=== PATIENT | male | born 1975 | race African-American/Black ===

== ENCOUNTER 2017-05-27 15:16 | Emergency (ER) | payer OTHER ==
--- NOTE | 2017-05-27 15:39 | PDOC ---
Rapid Medical Evaluation Chief Complaint: Injury Time Seen by Provider: 05/27/17 15:36 Medical Evaluation: Allergies Allergy/AdvReac Type Severity Reaction Status Date / Time No Known Allergies Allergy Verified 05/27/17 15:34 05/27/17 15:36 The patient presents with a chief complaint of: post head injury sustained from metal chair and broken window I have performed a brief in-person evaluation of this patient. mild headache and nausea Pertinent physical exam findings: no LOC, no neurofocal deficit, I have ordered the following:head ct The patient will proceed to the ED for further evaluation. Discharge Disposition - Diagnosis Closed head injury Qualifiers: Encounter type: initial encounter Qualified Code(s): S09.90XA - Unspecified injury of head, initial encounter - Referrals - Patient Instructions - Post Discharge Activity
[2017-05-27 15:52] VITALS: BP 141/86; PULSE 88; TEMP 98.4; BMI 26.6
[2017-05-27] MEDS ORDERED: ACETAMINOPHEN 325 MG TABLET (FP) PO ONE (16:59)
[2017-05-27] MEDS ORDERED: ACETAMINOPHEN 325 MG TABLET (FP) ONE (17:01)
--- NOTE | 2017-05-27 17:08 | PDOC ---
History of Present Illness - General Chief Complaint: Injury Stated Complaint: INJURY (WORK RELATED) Time Seen by Provider: 05/27/17 15:36 History Source: Patient Exam Limitations: No Limitations - History of Present Illness Initial Comments: 05/27/17 17:02 42 yr male works at [employer] states he was hit in the back of the head with a chair that went threw a glass door . no LOC. pt had shards of glass in his clothing, skin is intact. Accident occurred at 1pm today. Pt has not had anything to eat since early this AM, c/o headache. Timing/Duration: reports: 4-6 hours Severity: Yes: mild Past History - Past Medical History Allergies/Adverse Reactions: Allergies Allergy/AdvReac Type Severity Reaction Status Date / Time No Known Allergies Allergy Verified 05/27/17 15:34 Home Medications: Ambulatory Orders No Home Medications 0 dose .ROUTE UTDICT 08/18/12 COPD: No DVT: No Dementia: No - Immunization History Immunization Up to Date: Yes - Suicide/Smoking/Psychosocial Hx Smoking Status: Yes Smoking History: Former smoker Have you smoked in the past 12 months: No Number of Cigarettes Smoked Daily: 6 If you are a former smoker, when did you quit?: 10 Information on smoking cessation initiated: No 'Breaking Loose' booklet given: 03/22/15 Hx Alcohol Use: No Drug/Substance Use Hx: No Substance Use Type: None Neuro Specific PMHX - Complaint Specific PMHX Glaucoma: No Herniated Disk: No Laminectomy: No Migraine: No Multiple Sclerosis: No Neuropathy: No TIA: No Review of Systems - Review of Systems Able to Perform ROS?: Yes Is the patient limited Thai proficient: No Constitutional: No: Symptoms Reported HEENTM: No: Symptoms Reported Respiratory: No: Symptoms reported Cardiac (ROS): No: Symptoms Reported ABD/GI: No: Symptoms Reported : No: Symptoms Reported Musculoskeletal: No: Symptoms Reported Integumentary: No: Symptoms Reported Neurological: Yes: Symptoms reported *Physical Exam - Vital Signs Last Vital Signs Temp Pulse Resp BP Pulse Ox 98.4 F 88 16 141/86 98 05/27/17 15:35 05/27/17 15:35 05/27/17 15:35 05/27/17 15:35 05/27/17 15:35 - Physical Exam General Appearance: Yes: Nourished, Appropriately Dressed HEENT: positive: EOMI, ISABELLA, TMs Normal Neck: positive: Supple. negative: Tender lateral, Tender midline Respiratory/Chest: positive: Lungs Clear, Normal Breath Sounds Cardiovascular: positive: Regular Rhythm, Regular Rate Gastrointestinal/Abdominal: positive: Normal Bowel Sounds, Soft Musculoskeletal: positive: Normal Inspection. negative: CVA Tenderness, CVA Tenderness (R), CVA Tenderness (L), Decreased Range of Motion, Muscle Spasm Extremity: positive: Normal Capillary Refill, Normal Inspection, Normal Range of Motion. negative: Tender Integumentary: positive: Normal Color, Dry, Warm Neurologic: positive: Fully Oriented, Alert, Normal Mood/Affect, Normal Response , Motor Strength 5/5, Finger to Nose (intact ). negative: Abnormal Cranial NS, Responsive, Facial Droop, Numbness, Sensory Deficit (pt texting on cell phone no distress, awake and alert ), Confused, Depressed Affect Medical Decision Making - Medical Decision Making 05/27/17 17:08 cc: head injury at work today 1pm. no LOC skin intact no bruising or hematoma CT ordered from triage pt given brett for headache ct is pending *DC/Admit/Observation/Transfer Diagnosis at time of Disposition: Closed head injury Qualifiers: Encounter type: initial encounter Qualified Code(s): S09.90XA - Unspecified injury of head, initial encounter - Discharge Dispostion Disposition: HOME Condition at time of disposition: Good - Referrals Referrals: Robi Zuniga MD [Staff Physician] - - Patient Instructions Printed Discharge Instructions: DI for Closed Head Injury Additional Instructions: take tylenol 650mg every 4-6hrs for headache as needed follow with the neurologist if any worsening symptoms drink pleanty of water to stay hydrated return if any worsening symptoms - Post Discharge Activity
== END 2017-05-27 17:18 | disposition home or self-care (01) ==
LOC: JERFT 15:16
DX: S09.8XXA Other specified injuries of head, initial encounter (principal); Y00.XXXA Assault by blunt object, initial encounter; Y93.89 Activity, other specified; Y92.118 Other place in children's home and orphanage as the place of occurrence of the external cause; Y99.0 Civilian activity done for income or pay
CPT/HCPCS: 70450-TC; 99281-25